=== PATIENT | female | born 1960 | race African-American/Black ===

== ENCOUNTER 2017-03-14 11:13 | Emergency (ER) | payer OTHER ==
[2017-03-14 11:26] VITALS: BP 125/77; PULSE 75; TEMP 98.3; BMI 23.9
[2017-03-14] MEDS ORDERED: IBUPROFEN 400 MG TABLET (FP) PO ONE ×2 (12:01→12:02)
--- NOTE | 2017-03-14 12:02 | PDOC ---
History of Present Illness - General Chief Complaint: Pain, Acute Stated Complaint: KNEE INJURY Time Seen by Provider: 03/14/17 11:45 History Source: Patient Exam Limitations: No Limitations - History of Present Illness Initial Comments: 03/14/17 11:57 57 yr female with right knee injury last night twisted knee and fell. Pt denies head trauma no LOC. Past History - Past Medical History Allergies/Adverse Reactions: Allergies Allergy/AdvReac Type Severity Reaction Status Date / Time No Known Allergies Allergy Verified 03/14/17 11:24 Home Medications: Ambulatory Orders Ibuprofen 800 mg PO TID PRN #21 tablet 03/14/17 COPD: No Other medical history: DENIES MEDICAL HX - Suicide/Smoking/Psychosocial Hx Smoking History: Current every day smoker Number of Cigarettes Smoked Daily: 7 Information on smoking cessation initiated: No Hx Alcohol Use: Yes (OCCASIONALLY) Drug/Substance Use Hx: No *Physical Exam - Vital Signs Last Vital Signs Temp Pulse Resp BP Pulse Ox 98.3 F 75 16 125/77 100 03/14/17 11:25 03/14/17 11:25 03/14/17 11:25 03/14/17 11:25 03/14/17 11:25 - Physical Exam General Appearance: Yes: Nourished, Appropriately Dressed HEENT: positive: EOMI, MARKUS Neck: positive: Supple Respiratory/Chest: positive: Lungs Clear, Normal Breath Sounds Cardiovascular: positive: Regular Rhythm, Regular Rate Extremity: positive: Normal Capillary Refill, Tender (right knee lateral knee no bony tenderness , FROM nv intact) Integumentary: positive: Normal Color, Dry, Warm Neurologic: positive: training generalist II-XII NML intact, Fully Oriented, Alert, Normal Mood/ Affect, Normal Response, Motor Strength 5/5 Procedures - Splinting Progress: 03/14/17 12:13 adore wrap to right knee pt refused knee immobilizer pt refused crutches states she has a cane at home ED Treatment Course - RADIOLOGY Radiology Studies Ordered: Category Date Time Status KNEE 3 POS-RIGHT [RAD] Stat Radiology 03/14/17 11:30 Completed *DC/Admit/Observation/Transfer Diagnosis at time of Disposition: Right knee sprain Qualifiers: Encounter type: initial encounter Involved ligament of knee: other ligament Qualified Code(s): S83.8X1A - Sprain of other specified parts of right knee, initial encounter - Discharge Dispostion Disposition: HOME Condition at time of disposition: Good - Prescriptions Prescriptions: Ibuprofen 800 mg PO TID PRN #21 tablet PRN Reason: Severe Pain - Referrals Referrals: Ivan Ruth [Primary Care Provider] - Jay Ann MD [Staff Physician] - - Patient Instructions Additional Instructions: elevate and apply ice every 2hrs for pain for the next 2 days take ibuprofen 800mg as directed follow with the orthopedist next week no heavy lifting or bending - Post Discharge Activity Forms/Work/School Notes: Back to Work
== END 2017-03-14 12:21 | disposition home or self-care (01) ==
LOC: JERFT 11:13
DX: S83.8X1A Sprain of other specified parts of right knee, initial encounter (principal); X50.1XXA Overexertion from prolonged static or awkward postures, initial encounter; Y93.89 Activity, other specified; W19.XXXA Unspecified fall, initial encounter; Y92.89 Other specified places as the place of occurrence of the external cause; Y99.8 Other external cause status
CPT/HCPCS: 73562-TC-RT; 99281-25

== ENCOUNTER 2023-01-07 05:21 | Emergency (ER) | payer OTHER ==
[2023-01-07 05:25] VITALS: BP 112/70; PULSE 77; RESP 18; TEMP 97.6; BMI 23.0
[2023-01-07] MEDS ORDERED: ACETAMINOPHEN 500 MG TABLET (FP) PO ONE (08:13)
[2023-01-07] MEDS ORDERED: ACETAMINOPHEN 500 MG TABLET (FP) ONE (08:16)
== END 2023-01-07 08:37 | disposition home or self-care (01) ==
LOC: JER 05:21
DX: S99.921A Unspecified injury of right foot, initial encounter (principal); M79.671 Pain in right foot; R22.41 Localized swelling, mass and lump, right lower limb; W01.0XXA Fall on same level from slipping, tripping and stumbling without subsequent striking against object, initial encounter; Y92.002 Bathroom of unspecified non-institutional (private) residence as the place of occurrence of the external cause
CPT/HCPCS: 73610-TC-RT-FY; 73630-TC-RT-FY; 99283-25